=== PATIENT | female | born 1985 | race Two or more races ===

== ENCOUNTER 2018-12-04 11:32 | Emergency (ER) | payer MEDICAID ==
[~2018-12-04] VITALS: Ht 167.6 cm; Wt 73.5 kg
[2018-12-04 11:43] VITALS: BP 105/64
== END 2018-12-04 12:25 | disposition home or self-care (01) ==
LOC: ER 11:39
DX: O26.892 Other specified pregnancy related conditions, second trimester (principal); J02.9 Acute pharyngitis, unspecified; H66.92 Otitis media, unspecified, left ear; Z3A.26 26 weeks gestation of pregnancy